=== PATIENT | female | born 1965 | race Caucasian/White ===

== ENCOUNTER 2021-12-10 10:00 | Day surgery (SDC) | payer OTHER ==
[2021-12-10] MEDS ORDERED: BUPIVACAINE 0.5% VIAL IJ ONE (10:01)
[2021-12-10] MEDS ORDERED: Depo-Medrol 40 MG/ML IM ONE (10:01)
[2021-12-10] MEDS ORDERED: Lactated Ringers 1,000 ML IV ONE (12:24)
[2021-12-10] MEDS ORDERED: DIPRIVAN 200 MG/20 ML IV ONE (12:32)
--- NOTE | 2021-12-10 13:50 | XRAY ---
20 seconds fluoroscopy time in [facility] for injections of both DI
--- NOTE | 2021-12-10 13:50 | XRAY ---
Indication: Bilateral SI joint injection. Intraoperative fluoroscopy provided for 20 seconds. 4 digital spot image submitted for interpretation demonstrates posterior needle tip projecting over the inferior left and right SI joint. Correlate with intraoperative findings/report.
== END 2021-12-10 12:46 | disposition home or self-care (01) ==
LOC: SDC-PAIN 10:00
PROVIDERS: ATTEND Psychiatry & Neurology Pain Medicine
DX: M46.1 Sacroiliitis, not elsewhere classified (principal); Z79.899 Other long term (current) drug therapy
CPT/HCPCS: 27096; 72202; 77002; J1030; J2704; G0260

== ENCOUNTER 2022-01-07 13:05 | Day surgery (SDC) | payer OTHER ==
[2022-01-07] MEDS ORDERED: Depo-Medrol 40 MG/ML IM ONE (13:06)
[2022-01-07] MEDS ORDERED: Marcaine Mpf 0.5% Vial 30 Ml IJ ONE (13:06)
[2022-01-07] MEDS ORDERED: DIPRIVAN 200 MG/20 ML IV ONE (15:57)
[2022-01-07] MEDS ORDERED: Lactated Ringers 1,000 ML IV ONE (16:35)
--- NOTE | 2022-01-07 17:03 | XRAY ---
Indication: Right hip injection. Intraoperative fluoroscopy provided for 11 seconds. Single digital spot image submitted for interpretation demonstrates needle tip projecting lateral to the right femur neck. Small amount of contrast injected for needle tip placement. Correlate with intraoperative findings/report.
--- NOTE | 2022-01-07 17:20 | XRAY ---
11 seconds of fluoroscopy was used in surgery for a right hip intra-articular injection.
== END 2022-01-07 16:25 | disposition home or self-care (01) ==
LOC: SDC-PAIN 13:05
PROVIDERS: ATTEND Psychiatry & Neurology Pain Medicine
DX: M16.11 Unilateral primary osteoarthritis, right hip (principal); Z79.899 Other long term (current) drug therapy
CPT/HCPCS: 20610; 73501; 77002; J1030; J2704; Q9966